=== PATIENT | male | born 1950 | race Caucasian/White ===

== ENCOUNTER → 2017-12-08 | Outpatient (CLI) | payer OTHER ==
--- NOTE | 2017-12-08 13:00 | RAD ---
EXAM: Chest and right ribs, 3 views. HISTORY: Fall. COMPARISON: None. FINDINGS: A frontal view of the chest and 2 views of the right ribs are obtained. There is suspected bilateral lower lobe atelectasis. There is no pleural effusion or pneumothorax. The heart is normal in size. There are surgical clips within the right upper quadrant. There are mildly displaced anterior lateral right sixth through ninth rib fractures. There may be healed right tenth and eleventh rib fractures. IMPRESSION: 1. Suspected mildly displaced anterior lateral right sixth through ninth rib fractures. There may be healed right tenth and eleventh rib fractures. 2. Bilateral lower lobe atelectasis. Electronically signed by: Erin Shabazz MD (12/08/2017 12:56 PM) [email or web address]
== END | disposition home or self-care (01) ==
LOC: RAD 11:12
PROVIDERS: ATTEND Family Medicine
DX: J98.11 Atelectasis (principal)
CPT/HCPCS: 71101

== ENCOUNTER → 2019-04-18 | Outpatient (CLI) | payer MEDICARE ==
--- NOTE | 2019-04-18 14:41 | RAD ---
EXAM: Lumbar spine, 3 views. HISTORY: Pain. COMPARISON: None. FINDINGS: 3 views of the lumbar spine are obtained. There is grade 1 anterolisthesis of L4 and L5. There is mild retrolisthesis of L2 on L3 and L3 on L4. There is a severe chronic appearing wedge compression fracture of T12. There is degenerative endplate remodeling with a dominant spurring at the lower thoracic and lumbar levels. There is advanced facet arthropathy throughout the lumbar spine. IMPRESSION: 1. Severe chronic appearing T12 compression fracture. 2. Multilevel degenerative change throughout the visualized lower thoracic and lumbar spine, described above. 3. Grade 1 anterolisthesis of L4 and L5 and mild retrolisthesis of L2 on L3 and L3 on L4. Electronically signed by: Erin Shabazz MD (04/18/2019 2:39 PM) [email or web address]
== END | disposition home or self-care (01) ==
LOC: DXRAD 13:22
PROVIDERS: ATTEND Family Medicine
DX: M47.815 Spondylosis without myelopathy or radiculopathy, thoracolumbar region (principal); M46.86 Other specified inflammatory spondylopathies, lumbar region; M43.16 Spondylolisthesis, lumbar region; M53.86 Other specified dorsopathies, lumbar region
CPT/HCPCS: 72100